=== PATIENT | female | born 1965 | race Caucasian/White ===

== ENCOUNTER → 2023-07-31 12:53 | Outpatient (REF) | payer BC, SELFPAY | LOC: RAD 12:53 | PROVIDERS: ATTENDING PHYSICIAN Obstetrics & Gynecology; FAMILY PHYSICIAN Family Medicine | DX: R10.2 Pelvic and perineal pain (principal) | CPT/HCPCS: 76830; 76856 ==

== ENCOUNTER → 2023-12-12 11:10 | Outpatient (REF) | payer BC, SELFPAY | LOC: WDC 11:10 | PROVIDERS: ATTENDING PHYSICIAN Obstetrics & Gynecology; FAMILY PHYSICIAN Family Medicine | DX: Z12.31 Encounter for screening mammogram for malignant neoplasm of breast (principal) | CPT/HCPCS: 77063; 77067 ==

== ENCOUNTER → 2024-01-09 13:21 | Outpatient (REF) | payer BC, SELFPAY | LOC: RAD 13:21 | PROVIDERS: ATTENDING PHYSICIAN Internal Medicine Rheumatology; FAMILY PHYSICIAN Family Medicine | DX: M54.2 Cervicalgia (principal) | CPT/HCPCS: 72040 ==

== ENCOUNTER → 2024-02-05 09:08 | Outpatient (REF) | payer BC, SELFPAY | LOC: RAD 09:08 | PROVIDERS: ATTENDING PHYSICIAN Family Medicine | DX: Z13.6 Encounter for screening for cardiovascular disorders (principal) | CPT/HCPCS: 76770 ==

== ENCOUNTER → 2024-02-05 14:47 | Outpatient (REF) | payer BC, SELFPAY ==
[2024-02-10 17:48] LABS: HPV, High Risk Detected; HPV, High Risk Source Anal
== END ==
LOC: CLAB 14:47
PROVIDERS: ATTENDING PHYSICIAN Physician Assistant
DX: Z86.19 Personal history of other infectious and parasitic diseases (principal)
CPT/HCPCS: 87624; 88112

== ENCOUNTER 2024-03-03 13:47 | Outpatient (RCR) | payer BC, SELFPAY | END 2024-03-03 23:59 | disposition home or self-care (01) | LOC: ROT 13:47 | PROVIDERS: ATTENDING PHYSICIAN Anesthesiology Pain Medicine; FAMILY PHYSICIAN Family Medicine | DX: G90.50 Complex regional pain syndrome I, unspecified (principal); Z73.6 Limitation of activities due to disability | CPT/HCPCS: 97166; 97535 ==

== ENCOUNTER 2024-05-12 06:15 | Day surgery (SDC) | payer BC, SELFPAY ==
[2024-05-12] MEDS: MOTRIN 600 MG PO (09:27)
[2024-05-12] MEDS: NORMOSOL-R/PLASMALYTE-A 1000 IV (09:30)
[2024-05-12 09:31] VITALS: BMI 25.0
[2024-05-12 09:32] VITALS: BP 132/91; BMI 25.0
[2024-05-12 13:02] VITALS: BP 128/72
--- NOTE | 2024-05-12 13:07 | W.IMMPOSTOP ---
Surgical Immed Post Op Note
-
Primary Surgeon: Denny Silverio MD
Assisting Surgeon: BERTIN Smith
Pre-op Diagnosis: Anal dysplasia, HPV 16
Post-op Diagnosis: Anal dysplasia, HPV 16
Procedure Performed: High resolution anoscopy, anal biopsy, fulguration, bilateral pudendal nerve block
Anesthesia Type: Sedation with local
Specimen / Cultures:
1. Posterior midline deep anal biopsy
2. Posterior midline mid anal biopsy
3. Anterior midline deep anal biopsy
4. Skin tag
Estimated Blood Loss: 5 mL
Complications: None
Operative Findings: Per op note
--- NOTE | 2024-05-12 13:09 | OR.RPT ---
Operative Report
Operative Report
DATE OF OPERATION: 05/12/2024
SURGEON: Denny Silverio MD
PREOPERATIVE DIAGNOSIS: Anal dysplasia, HPV 16, anal skin tag
POSTOPERATIVE DIAGNOSIS: Anal dysplasia, HPV 16, anal skin tag
OPERATION: Exam under anesthesia, high-resolution anoscopy, multiple anal biopsies, fulgration of anal lesion, bilateral pudendal nerve block
ASSISTANTS:
1. BERTIN Smith
ANESTHESIA: Sedation with local
ESTIMATED BLOOD LOSS: 5 mL
FINDINGS:
1. In the posterior midline, there were 2 areas in the proximal and mid anal canal with indiscriminate borders that were acetowhite, Lugol's negative, no vascular pattern; biopsied
2. In the anterior midline in the posterior anal canal, there was a small lesion that was acetowhite, Lugol's negative with micropunctations; this was biopsied and fulgurated
SPECIMENS:
1. Posterior midline deep anal biopsy
2. Posterior midline mid anal biopsy
3. Anterior midline deep anal biopsy
DRAINS: None
COMPLICATIONS: None
INDICATIONS: The patient is a 58-year-old female who was found to have LSIL on anal Pap and HPV 16. She was also treated for an anal fissure that resolved. Therefore, the patient was recommended to have high-resolution anoscopy with possible
biopsy and fulguration. After discussion with the patient, it was determined that performing the procedure with anesthesia. The operation was discussed with the patient in detail, including the risks, benefits and alternatives. Risks described
included, but not limited to bleeding, infection, urinary retention, damage to nearby structures such as the anal sphincter, fecal incontinence, anal stenosis, missed lesions, recurrence, progression to anal cancer despite monitoring and treatment,
and anesthetic risks. The patient understood and agreed to proceed. The consent was signed and placed in the chart.
PROCEDURE IN DETAIL: The patient was taken to the operating room. The patient was placed on the operating table in prone position. Sequential compression devices were placed bilaterally. Sedation was commenced without complication. Two seat belts
were secured around the legs and upper back. The buttocks were taped apart. The perineum was prepped and draped in the usual fashion. A time-out was performed verifying the correct patient, procedure, operative site, positioning, and special
equipment.
Local anesthesia used was a mixture of 60 mL of 0.25% Marcaine with epinephrine and 0.6 mg of dexamethasone. 40 mL was injected perianally at the beginning of the case. The anorectal exam was performed assessing all four quadrants of the anal canal
using Hill-Owen retractors in progressively increasing size. There was a small anal skin tag in the left posterior position. The posterior fissure was well-healed, just to the left of midline. There were small external hemorrhoids and
small/physiologic internal hemorrhoids without irritation or bleeding. There were no masses, proctitis or other concerning anal pathology.
I placed a ray-jolanta soaked in 5% acetic acid within the anal canal and folded an external portion of it to cover the guy-anal region. This was left in place for 3 minutes and then removed. The anal canal was again visualized with Hill-Owen
retractors. Each quadrant was examined using the laparoscope on highest zoom, allowing for high-resolution. Lugol's 2% solution was swabbed on to each quadrant under direct visualization using high-resolution.
In the perianal area, there was no concerning acetowhite, Lugol's negative lesion so no biopsy was performed.
In the posterior quadrant, there were 2 areas of acetowhite and Lugol's negative in the deep and mid anal canal. These areas had indistinct borders and no vascular pattern. Biopsies were taken.
In the right lateral quadrant, there was no concerning acetowhite, Lugol's negative lesion so no biopsy was performed.
In the anterior quadrant, there was a small patch of acetowhite and Lugol's negative. There were distinct borders and micropunctations associated with the lesion. Therefore, this was biopsied and fulgurated.
In the left lateral quadrant, there was no concerning acetowhite, Lugol's negative lesion so no biopsy was performed.
I elevated the anal skin tag and excised this with Metzenbaum scissors, taking care to avoid the underlying sphincter muscle. Hemostasis was confirmed with electrocautery.
The remaining 20 mL of local were injected. 5 mL was injected bilaterally for a pudendal nerve block. 10 mL was injected around the surgical site and perianally. Hemostasis was reassessed once more using the small Hill-Owen and was confirmed.
At this point, the procedure was complete. All needle, sponge and instrument counts were correct. The patient tolerated the procedure well and was transferred to the recovery room in stable condition with gauze dressing in place secured with silk
tape.
DICTATED BY: Denny Silverio MD
[2024-05-12 13:15] VITALS: BP 125/83
[2024-05-12 13:30] VITALS: BP 139/83
[2024-05-12 13:45] VITALS: BP 133/78
[2024-05-12 14:00] VITALS: BP 134/72
== END 2024-05-12 14:17 | disposition home or self-care (01) ==
LOC: SDS 06:15
PROVIDERS: ATTENDING PHYSICIAN Surgery; FAMILY PHYSICIAN Family Medicine
DX: K62.82 Dysplasia of anus (principal); K62.89 Other specified diseases of anus and rectum; B97.7 Papillomavirus as the cause of diseases classified elsewhere; K64.8 Other hemorrhoids; K64.4 Residual hemorrhoidal skin tags
CPT/HCPCS: 46220; 88304; 88305; 88341; 88342

== ENCOUNTER → 2024-10-20 13:46 | Outpatient (REF) | payer BC, SELFPAY | LOC: WDC 13:46 | PROVIDERS: ATTENDING PHYSICIAN Obstetrics & Gynecology; FAMILY PHYSICIAN Family Medicine | DX: Z12.31 Encounter for screening mammogram for malignant neoplasm of breast (principal) | CPT/HCPCS: 77063; 77067 ==

== ENCOUNTER → 2025-01-24 12:38 | Outpatient (REF) | payer BC, SELFPAY | LOC: RAD 12:38 | PROVIDERS: ATTENDING PHYSICIAN Internal Medicine Rheumatology; FAMILY PHYSICIAN Family Medicine | DX: M81.0 Age-related osteoporosis without current pathological fracture (principal) | CPT/HCPCS: 77080 ==